=== PATIENT | female | born 1980 | race Caucasian/White ===

== ENCOUNTER 2016-12-19 14:52 | Emergency (ER) | payer OTHER ==
[2016-12-19 15:33] LABS: microscopic required? YES; urine erythrocyte TRACE (NEGATIVE)
[2016-12-19 15:38] LABS: BASOPHIL % 0.7 % (0-2); CALCIUM 9.6 mg/dL (8.5-10.1); CARBON DIOXIDE 17.2 mmol/L (21-32); CHLORIDE SERUM 103 mmol/L (98-107); CREATININE SERUM 0.7 mg/dL (0.6-1.0); GFR1 > 60 mL/min; GLUCOSE SERUM 106 mg/dL (74-106); PLATELET COUNT 270 x10^3mcL (130-400); POTASSIUM SERUM 3.4 mmol/L (3.5-5.1); RED CELL DISTRIBUTION WIDTH 12.1 % (11.5-14.5); SODIUM SERUM 137 mmol/L (136-145)
[2016-12-19 15:43] LABS: ALBUMIN 4.4 g/dL (3.4-5.0); ALKALINE PHOSPHATASE 55 U/L (46-116); ALT/SGPT 17 U/L (14-59); AST/SGOT 15 U/L (15-37); BILIRUBIN TOTAL 0.78 mg/dL (0.20-1.00); LIPASE 117 IU/L (73-393); TOTAL PROTEIN, SERUM 8.2 g/dL (6.4-8.2)
[2016-12-19 15:44] LABS: AMPHETAMINE QUAL UR NONE DETECTED (NEG <=1000)
[2016-12-19 17:12] VITALS: BP 126/70
== END 2016-12-19 17:12 | disposition home or self-care (01) ==
LOC: ED 14:52
PROVIDERS: Emergency Medicine
DX: O34.81 Maternal care for other abnormalities of pelvic organs, first trimester (principal); Z3A.01 Less than 8 weeks gestation of pregnancy
CPT/HCPCS: 80307; J1885; J2060; J7030

== ENCOUNTER 2017-02-20 01:49 | Emergency (ER) | payer OTHER ==
[2017-02-20 02:49] LABS: PLATELET COUNT 274 x10^3mcL (130-400); RED CELL DISTRIBUTION WIDTH 11.5 % (11.5-14.5)
[2017-02-20 02:58] LABS: BASOPHIL % 8.3 % (0-2)
[2017-02-20 04:42] LABS: UA SPECIFIC GRAVITY 1.025 (1.005-1.035); microscopic required? YES; urine erythrocyte 3+ (NEGATIVE)
[2017-02-20 05:35] VITALS: BP 107/63
== END 2017-02-20 05:50 | disposition home or self-care (01) ==
LOC: ED 01:49
PROVIDERS: Emergency Medicine
DX: O03.9 Complete or unspecified spontaneous abortion without complication (principal)
CPT/HCPCS: 36415

== ENCOUNTER 2017-07-04 19:56 | Emergency (ER) | payer OTHER ==
[~2017-07-04] VITALS: Ht 154.9 cm; Wt 52.6 kg
[2017-07-04 20:58] LABS: microscopic required? NO
[2017-07-04 21:04] LABS: UA SPECIFIC GRAVITY 1.015 (1.005-1.035); urine erythrocyte NEGATIVE (NEGATIVE)
[2017-07-04 22:39] VITALS: BP 114/68
== END 2017-07-04 22:15 | disposition home or self-care (01) ==
LOC: ED 19:56
PROVIDERS: Emergency Medicine
DX: S39.012A Strain of muscle, fascia and tendon of lower back, initial encounter (principal); Z88.1 Allergy status to other antibiotic agents; X58.XXXA Exposure to other specified factors, initial encounter; Y93.89 Activity, other specified; Y92.89 Other specified places as the place of occurrence of the external cause; Y99.8 Other external cause status
CPT/HCPCS: J1885

== ENCOUNTER 2017-12-28 11:07 | Inpatient (IN) | payer OTHER ==
[~2017-12-28] VITALS: Ht 154.9 cm; Wt 53.8 kg
[2017-12-28 12:29] LABS: BASOPHIL % 0.7 % (0-2); PLATELET COUNT 214 x10^3mcL (130-400)
[2017-12-28 12:39] LABS: UA SPECIFIC GRAVITY 1.025 (1.005-1.035); microscopic required? YES; urine erythrocyte NEGATIVE (NEGATIVE)
[2017-12-28 12:44] LABS: CALCIUM 7.6 mg/dL (8.5-10.1); CARBON DIOXIDE 21.6 mmol/L (21-32); CHLORIDE SERUM 105 mmol/L (98-107); CREATININE SERUM 0.4 mg/dL (0.6-1.0); GFR1 > 60 mL/min; GLUCOSE SERUM 89 mg/dL (74-106); POTASSIUM SERUM 3.4 mmol/L (3.5-5.1); SODIUM SERUM 135 mmol/L (136-145)
[2017-12-28 12:48] LABS: ALBUMIN 3.7 g/dL (3.4-5.0); ALKALINE PHOSPHATASE 36 U/L (46-116); ALT/SGPT 16 U/L (14-59); AMYLASE 45 U/L (25-115); AST/SGOT 12 U/L (15-37); BILIRUBIN TOTAL 0.84 mg/dL (0.20-1.00); LIPASE 116 IU/L (73-393); TOTAL PROTEIN, SERUM 6.7 g/dL (6.4-8.2)
[2017-12-28 13:13] LABS: AMPHETAMINE QUAL UR NONE DETECTED (NEG <=1000)
[2017-12-28 17:13] LABS: MAGNESIUM 2.1 mg/dL (1.8-2.4); PHOSPHOROUS 2.4 mg/dL (2.5-4.9)
[2017-12-28 17:14] VITALS: BP 111/78
[2017-12-28 17:15] LABS: CHOLESTEROL/HDL RATIO 2.3
[2017-12-28 17:20] LABS: FREE T4 1.25 ng/dL (0.76-1.46); FREE THYROXINE INDEX 3.3 ug/dL (1.4-4.5); T4(THYROXINE) 10.2 ug/dL (4.7-13.3)
[2017-12-28 22:23] VITALS: BP 109/61
[2017-12-29 05:58] VITALS: BP 106/64
[2017-12-29 06:20] LABS: BASOPHIL % 0.2 % (0-2); PLATELET COUNT 182 x10^3mcL (130-400); RED CELL DISTRIBUTION WIDTH 12.6 % (11.5-14.5)
[2017-12-29 06:52] LABS: CALCIUM 7.3 mg/dL (8.5-10.1); CARBON DIOXIDE 21.4 mmol/L (21-32); CHLORIDE SERUM 108 mmol/L (98-107); CREATININE SERUM 0.4 mg/dL (0.6-1.0); GFR1 > 60 mL/min; GLUCOSE SERUM 85 mg/dL (74-106); PHOSPHOROUS 2.8 mg/dL (2.5-4.9); POTASSIUM SERUM 3.7 mmol/L (3.5-5.1); SODIUM SERUM 138 mmol/L (136-145)
[2017-12-29 09:50] VITALS: BP 113/77
[2017-12-29 09:56] VITALS: Ht 154.9 cm; Wt 53.8 kg
[2017-12-29 17:56] VITALS: BP 124/75
[2017-12-29 19:25] VITALS: BP 112/55
[2017-12-30 06:22] LABS: BASOPHIL % 0.3 % (0-2); PLATELET COUNT 171 x10^3mcL (130-400); RED CELL DISTRIBUTION WIDTH 12.4 % (11.5-14.5)
[2017-12-30 06:37] LABS: CALCIUM 7.5 mg/dL (8.5-10.1); CARBON DIOXIDE 22.1 mmol/L (21-32); CHLORIDE SERUM 106 mmol/L (98-107); CREATININE SERUM 0.3 mg/dL (0.6-1.0); GFR1 > 60 mL/min; GLUCOSE SERUM 74 mg/dL (74-106); POTASSIUM SERUM 3.5 mmol/L (3.5-5.1); SODIUM SERUM 136 mmol/L (136-145)
[2017-12-30 06:43] VITALS: BP 109/67
[2017-12-30] MEDS ORDERED: CLINDAMYCIN HC300 MG PO (08:26)
[2017-12-30] MEDS ORDERED: LEVAQUIN750 MG PO (08:26)
[2017-12-30] MEDS ORDERED: BD LACTINEX1.4 MG PO (08:27)
[2017-12-30 09:11] VITALS: BP 120/68
[2017-12-30] MEDS ORDERED: IBUPROFEN600 MG PO (09:40)
[2017-12-30] MEDS ORDERED: ZOF4 PO (11:25)
[2017-12-30 13:25] VITALS: BP 120/68
== END 2017-12-30 14:09 | disposition home or self-care (01) | DRG 532 ==
LOC: ED 11:07 → DU 16:04
PROVIDERS: Emergency Medicine; Family Medicine; Family Medicine Sports Medicine
DX: N83.202 Unspecified ovarian cyst, left side (principal); N17.0 Acute kidney failure with tubular necrosis; K66.1 Hemoperitoneum; D64.9 Anemia, unspecified; N39.0 Urinary tract infection, site not specified
CPT/HCPCS: 36600; 83880; 84439; J1885; J1956; J2060; J2270; J2405; J3490; J7030; Q0092; Q9967

== ENCOUNTER 2018-01-17 08:27 | Emergency (ER) | payer OTHER ==
[~2018-01-17] VITALS: Ht 154.9 cm; Wt 51.2 kg
[~2018-01-17 08:27] MED LIST: BD LACTINEX1.4 MG PO; CLINDAMYCIN HC300 MG PO; IBUPROFEN600 MG PO; LEVAQUIN750 MG PO; ZOF4 PO
[2018-01-17 08:36] VITALS: Ht 154.9 cm; Wt 51.2 kg
[2018-01-17 09:25] LABS: BASOPHIL % 1.1 % (0-2); PLATELET COUNT 292 x10^3mcL (130-400); RED CELL DISTRIBUTION WIDTH 12.7 % (11.5-14.5)
[2018-01-17 09:32] LABS: CALCIUM 8.6 mg/dL (8.5-10.1); CARBON DIOXIDE 26.1 mmol/L (21-32); CHLORIDE SERUM 109 mmol/L (98-107); CREATININE SERUM 0.5 mg/dL (0.6-1.0); GFR1 > 60 mL/min; GLUCOSE SERUM 105 mg/dL (74-106); POTASSIUM SERUM 4.3 mmol/L (3.5-5.1); SODIUM SERUM 141 mmol/L (136-145)
[2018-01-17 09:36] LABS: ALKALINE PHOSPHATASE 56 U/L (46-116); ALT/SGPT 10 U/L (14-59); AST/SGOT 10 U/L (15-37); BILIRUBIN TOTAL 0.7 mg/dL (0.20-1.00); LIPASE 142 IU/L (73-393); TOTAL PROTEIN, SERUM 7.6 g/dL (6.4-8.2)
[2018-01-17 11:34] VITALS: BP 100/64
== END 2018-01-17 11:34 | disposition home or self-care (01) ==
LOC: ED 08:27
PROVIDERS: Emergency Medicine
DX: N83.209 Unspecified ovarian cyst, unspecified side (principal); Z90.89 Acquired absence of other organs; Z88.0 Allergy status to penicillin; Z88.1 Allergy status to other antibiotic agents
CPT/HCPCS: J2270; J2405

== ENCOUNTER 2018-08-07 13:49 | Emergency (ER) | payer OTHER ==
[~2018-08-07] VITALS: Ht 152.4 cm; Wt 54.4 kg
[2018-08-07 14:00] VITALS: Ht 152.4 cm; Wt 54.4 kg
[2018-08-07 16:47] VITALS: BP 112/82
== END 2018-08-07 16:47 | disposition home or self-care (01) ==
LOC: ED 13:49
DX: S09.8XXA Other specified injuries of head, initial encounter (principal); J45.909 Unspecified asthma, uncomplicated; Z88.2 Allergy status to sulfonamides; Z88.0 Allergy status to penicillin; W22.8XXA Striking against or struck by other objects, initial encounter; Y93.89 Activity, other specified; Y92.89 Other specified places as the place of occurrence of the external cause; Y99.8 Other external cause status
CPT/HCPCS: J0780; J1885

== ENCOUNTER 2019-05-21 17:25 | Emergency (ER) | payer OTHER ==
[~2019-05-21] VITALS: Ht 154.9 cm; Wt 59.0 kg
[2019-05-21 17:34] VITALS: Ht 154.9 cm; Wt 59.0 kg
[2019-05-21 18:47] LABS: BASOPHIL % 0.7 % (0-2); PLATELET COUNT 258 x10^3mcL (130-400); RED CELL DISTRIBUTION WIDTH 12.8 % (11.5-14.5)
[2019-05-21 21:11] VITALS: BP 111/73
== END 2019-05-21 21:11 | disposition home or self-care (01) ==
LOC: ED 17:25
PROVIDERS: Emergency Medicine
DX: N94.89 Other specified conditions associated with female genital organs and menstrual cycle (principal); J45.909 Unspecified asthma, uncomplicated; Z88.1 Allergy status to other antibiotic agents; Z88.2 Allergy status to sulfonamides; Z90.89 Acquired absence of other organs; Z87.442 Personal history of urinary calculi
CPT/HCPCS: 87491; 87591; J1885; J7030